=== PATIENT | female | born 1995 | race African-American/Black ===

== ENCOUNTER 2022-07-15 13:35 | Inpatient (IN) | payer OTHER ==
[2022-07-15] MEDS ORDERED: ELECTROLYTE-148 SOLN 1,000 ML IV SCH (15:00)
[2022-07-15] MEDS ORDERED: PROPOFOL 20 ML ONE (15:26)
[2022-07-15] MEDS ORDERED: SUCCINYLCHOLINE CHLORIDE 200 MG/10 ML SYRINGE ONE (15:27)
[2022-07-15 16:14] LABS: BASO % 0.2 % (0-2.0); EOS % 0.2 % (0-4.5); HEMATOCRIT 30.2 % (32.4-45.2); HEMOGLOBIN 9.6 GM/dL (10.7-15.3); LYMPH % 13.9 % (8-40); MCH 24.5 pg (25.7-33.7); MCHC 31.9 g/dl (32.0-36.0); MEAN CELL VOLUME 76.7 fl (80-96); MEAN PLT VOLUME 7.5 fl (7.5-11.1); MONO % 10.1 % (3.8-10.2); NEUT % 75.6 % (42.8-82.8); PLATELET COUNT 221 10^3/uL (134-434); RBC 3.93 M/mm3 (3.60-5.2); RDW 16.9 % (11.6-15.6); WHITE BLOOD COUNT 11.7 K/mm3 (4.0-10.0)
[2022-07-15] MEDS ORDERED: ONDANSETRON 4 MG/2 ML VIAL ONE (16:14)
[2022-07-15 16:28] LABS: INR 1.08 (0.83-1.09); PROTHROMBIN TIME (PATIENT) 12.4 SEC (9.7-13.0)
[2022-07-15 16:31] LABS: ACTIVATED PTT 25.3 SECONDS (25.2-36.5)
[2022-07-15 16:36] LABS: CALCIUM 8.4 mg/dL (8.5-10.1)
[2022-07-15 16:37] LABS: BLOOD UREA NITROGEN 4.3 mg/dL (7-18)
[2022-07-15 16:40] LABS: CREATININE 0.5 mg/dL (0.55-1.3)
[2022-07-15] MEDS ORDERED: ONDANSETRON 4 MG/2 ML VIAL IVPUSH PRN (16:48)
[2022-07-15 17:39] VITALS: BMI 32.3
[2022-07-15 18:00] LABS: CORD BASE EXCESS -3.1 mmol/L (0-2); CORD HCO3 25.1 mmHg (20-29); CORD PCO2 55.2 mmHg (30-78); CORD pH 7.275 (7.14-7.44)
[2022-07-15] MEDS ORDERED: ACETAMINOPHEN INJECTION 100 ML IVPB ONE (18:14)
[2022-07-15] MEDS ORDERED: ACETAMINOPHEN 1000 MG/100 ML BAG IVPB ONE (18:30)
[2022-07-15] MEDS ORDERED: OXYTOCIN 20 UNITS in 0.9% NS 20 UNIT/1,000 ML INFUS.BAG IV ONE (18:43)
[2022-07-15] MEDS: OXYTOCIN 20 UNITS in 0.9% NS 20 UNIT/1,000 ML INFUS.BAG IV SCH (18:45)
[2022-07-15] MEDS ORDERED: METHYLERGONOVINE MALEATE 0.2 MG/1 ML AMP IM PRN (19:08)
[2022-07-15] MEDS ORDERED: BENZOCAINE 20% 57 GM BOTTLE TP PRN (19:08)
[2022-07-15] MEDS ORDERED: WITCH HAZEL 50% (TUCKS) 40 PAD/JAR PAD TP PRN (19:08)
[2022-07-15] MEDS ORDERED: SENNOSIDES/DOCUSATE COMBO (SENNA PLUS) TABLET (UD) PO PRN (19:08)
[2022-07-15] MEDS ORDERED: BENZOCAINE 28 GM HEMORRHOIDAL OINTMENT TP PRN (19:08)
[2022-07-15] MEDS: IBUPROFEN 800 MG/8 ML IJ IVPB PRN (20:28)
[2022-07-16] MEDS: CEFAZOLIN 1 GM in DEXTROSE 5%-WATER - 50 ML IVPB SCH ×3 (02:00→17:18)
[2022-07-16] MEDS: OXYTOCIN 20 UNITS in 0.9% NS 20 UNIT/1,000 ML INFUS.BAG IV SCH (02:00)
[2022-07-16] MEDS: ACETAMINOPHEN 325 MG TABLET (FP) PO PRN ×2 (02:03→17:18)
[2022-07-16] MEDS: IBUPROFEN 800 MG/8 ML IJ IVPB PRN (04:13)
[2022-07-16] MEDS ORDERED: oxyCODONE HCL 5 MG TABLET PO PRN (07:09)
[2022-07-16 08:57] LABS: BASO % 0.2 % (0-2.0); EOS % 0.3 % (0-4.5); HEMOGLOBIN 9.2 GM/dL (10.7-15.3); LYMPH % 12.2 % (8-40); MCH 24.2 pg (25.7-33.7); MCHC 31.7 g/dl (32.0-36.0); MEAN CELL VOLUME 76.3 fl (80-96); MEAN PLT VOLUME 7.8 fl (7.5-11.1); MONO % 7.8 % (3.8-10.2); NEUT % 79.5 % (42.8-82.8); PLATELET COUNT 223 10^3/uL (134-434); RDW 16.7 % (11.6-15.6); WHITE BLOOD COUNT 14.6 K/mm3 (4.0-10.0)
[2022-07-16] MEDS: ENOXAPARIN NA (PORCINE) 40 MG/0.4 ML DISP.SYRIN SQ SCH (10:03)
[2022-07-16] MEDS: SIMETHICONE 80 MG TAB.CHEW (FP) PO PRN ×3 (10:04→20:39)
[2022-07-16] MEDS: PRENATAL VITAMINS W/ FOLIC ACID TABLET (FP) PO SCH (10:04)
[2022-07-16] MEDS: IBUPROFEN 600 MG TABLET (FP) PO PRN ×2 (10:04→20:38)
[2022-07-16] MEDS ORDERED: BISACODYL 10 MG SUPP.RECT RC PRN (19:09)
[2022-07-16] MEDS: oxyCODONE HCL 5 MG TABLET PO PRN (21:38)
[2022-07-17] MEDS: SIMETHICONE 80 MG TAB.CHEW (FP) PO PRN ×2 (04:56→12:50)
[2022-07-17] MEDS: oxyCODONE HCL 5 MG TABLET PO PRN ×3 (04:56→18:41)
[2022-07-17] MEDS: ENOXAPARIN NA (PORCINE) 40 MG/0.4 ML DISP.SYRIN SQ SCH (09:25)
[2022-07-17] MEDS: PRENATAL VITAMINS W/ FOLIC ACID TABLET (FP) PO SCH (09:25)
[2022-07-17] MEDS: ACETAMINOPHEN 325 MG TABLET (FP) PO PRN (10:58)
[2022-07-17 22:32] VITALS: RESP 18
[2022-07-18] MEDS: IBUPROFEN 600 MG TABLET (FP) PO PRN (04:16)
[2022-07-18] MEDS: SIMETHICONE 80 MG TAB.CHEW (FP) PO PRN (04:16)
[2022-07-18 09:11] LABS: BASO % 0.3 % (0-2.0); EOS % 1.3 % (0-4.5); HEMATOCRIT 32.2 % (32.4-45.2); HEMOGLOBIN 10.2 GM/dL (10.7-15.3); LYMPH % 20.5 % (8-40); MCH 24.2 pg (25.7-33.7); MCHC 31.6 g/dl (32.0-36.0); MEAN CELL VOLUME 76.7 fl (80-96); MEAN PLT VOLUME 7.8 fl (7.5-11.1); MONO % 6.6 % (3.8-10.2); NEUT % 71.3 % (42.8-82.8); PLATELET COUNT 305 10^3/uL (134-434); RDW 17.1 % (11.6-15.6); WHITE BLOOD COUNT 13.6 K/mm3 (4.0-10.0)
[2022-07-18] MEDS: PRENATAL VITAMINS W/ FOLIC ACID TABLET (FP) PO SCH (09:59)
[2022-07-18] MEDS: ENOXAPARIN NA (PORCINE) 40 MG/0.4 ML DISP.SYRIN SQ SCH (10:44)
[2022-07-18 12:02] VITALS: BP 110/69; PULSE 60; TEMP 97.7
== END 2022-07-18 13:45 | disposition home or self-care (01) | DRG 540 ==
LOC: JDEL 13:35 → JLDR 14:08 → J3W 20:05
PROVIDERS: ADMIT Obstetrics & Gynecology; ATTEND Obstetrics & Gynecology
PROC: 10D00Z1 Extraction of Products of Conception, Low, Open Approach (ICD-10-PCS; principal; 2022-07-15)
DX: O76 Abnormality in fetal heart rate and rhythm complicating labor and delivery (principal); O24.420 Gestational diabetes mellitus in childbirth, diet controlled; Z3A.38 38 weeks gestation of pregnancy; Z37.0 Single live birth
CPT/HCPCS: 36415; 36600; 80048; 82803; 85025; 85610; 85730; 86780; 86850; 86900; 86901; 88307-TC; C9803-CS; U0003; U0005